=== PATIENT | male | born 1985 | race African-American/Black ===

== ENCOUNTER 2020-01-18 13:32 | Emergency (ER) | payer SELFPAY ==
[~2020-01-18] VITALS: Ht 167.6 cm; Wt 59.9 kg
[2020-01-18 13:48] VITALS: Ht 167.6 cm; Wt 59.9 kg
[2020-01-18 14:23] VITALS: BP 124/82
== END 2020-01-18 14:23 | disposition left against medical advice (07) ==
LOC: ED 13:32
DX: Z53.21 Procedure and treatment not carried out due to patient leaving prior to being seen by health care provider (principal)

== ENCOUNTER 2020-03-29 02:11 | Emergency (ER) | payer SELFPAY ==
[~2020-03-29] VITALS: Ht 167.6 cm; Wt 65.8 kg
[2020-03-29 03:29] LABS: BASOPHIL % 0.3 % (0-2); PLATELET COUNT 349 x10^3mcL (130-400); RED CELL DISTRIBUTION WIDTH 12.3 % (11.5-14.5)
[2020-03-29 04:04] LABS: CALCIUM 8.6 mg/dL (8.5-10.1); CARBON DIOXIDE 32.9 mmol/L (21-32); CHLORIDE SERUM 105 mmol/L (98-107); CREATININE SERUM 1.3 mg/dL (0.7-1.3); GFR1 > 60 mL/min; GLUCOSE SERUM 85 mg/dL (74-106); SODIUM SERUM 145 mmol/L (136-145)
[2020-03-29 04:14] LABS: ALBUMIN 3.7 g/dL (3.4-5.0); ALKALINE PHOSPHATASE 120 U/L (46-116); ALT/SGPT 60 U/L (16-63); AST/SGOT 35 U/L (15-37); BILIRUBIN DIRECT 0.19 mg/dL (0.0-0.2); BILIRUBIN TOTAL 0.6 mg/dL (0.20-1.00); TOTAL PROTEIN, SERUM 7.4 g/dL (6.4-8.2)
[2020-03-29 06:08] VITALS: BP 124/90
[2020-03-29 09:29] LABS: AMPHETAMINE QUAL UR POSITIVE (See below)
== END 2020-03-29 06:08 | disposition home or self-care (01) ==
LOC: ED 02:11
PROVIDERS: Student in an Organized Health Care Education/Training Program
DX: R41.82 Altered mental status, unspecified (principal); T40.601A Poisoning by unspecified narcotics, accidental (unintentional), initial encounter; Y92.89 Other specified places as the place of occurrence of the external cause
CPT/HCPCS: G0480; Q0092